=== PATIENT | female | born 1950 | race Caucasian/White ===

== ENCOUNTER → 2018-05-25 | Day surgery (SDC) | payer OTHER ==
--- NOTE | 2018-05-22 12:59 | History & Physical Pre-Op ---
General Information and HPI History of Present Illness: Laurel is a 68-year-old female with a long-standing and worsening complaint of a painful soft tissue mass and bone spur right foot. The patient has undergone an extended course of conservative care, including shoe gear and activity modification, rest, immobilization and courses of NSAIDs. None of this is yielded her any significant relief. The patient presents today for preoperative surgical consultation. The patient was referred to our office from Saúl Smith DPM. Allergies/Medications Allergies: Coded Allergies: MDX - Penicillin (PENICILLIN) (unknown 12/05/13) MDX - Sulfamethoxazole (From SEPTRA) (hives 12/05/13) MDX - Trimethoprim (From ) (hives 12/05/13) Past History Surgical History Pertinent Surgical History: non-contributory Review of Systems Review of Systems: Unremarkable except for that noted discussion of Exam & Diagnostic Data Physical Exam: Lungs clear bilaterally. Heart sounds rate and rhythm regular. Lower extremity physical exam demonstrates intact pedal pulses bilaterally. Both dorsalis pedis and posterior tibial arteries are palpable bilaterally. Patient without any sensory motor deficits. Deep tendon reflexes grossly intact. Patient noted to have cemented pain with palpation or range of motion through the right first metatarsophalangeal joint and with palpation plantarly at the met head. Patient also noted to have a enlarging and painful soft tissue mass right foot. Assessment/Plan Assessment/Plan: Painful and enlarging soft tissue mass with bone spur right foot. A lengthy discussion reviewing both surgical and conservative options was held the patient at bedside and the patient elected to go forward with surgery despite the risks. As Ranked By This Provider Problem List: 1. Neoplasm of unspecified behavior of bone, soft tissue, and skin Attending MD Review Statement Attending Statement Attending MD Statement: examined this patient
--- NOTE | 2018-05-25 13:03 | Operative Report ---
Operative/Inv Procedure Report Surgery Date: 05/25/18 Name of Procedure: 1 Excision of soft tissue mass right foot 2 Closure of open surgical wound with local random advancement flap 3 Excision of tibial sesamoid righ foot 4 Intra-operative administration of ankle block anesthesia Pre-Operative Diagnosis: 1 Painful, enlarging soft tissue mass right foot 2 Painful sesamoiditis right foot Post-Operative Diagnosis: The same Estimated Blood Loss: scant Surgeon/Supervising Fire Marshal: Rosalie RUTHERFORD,Carl Smith DPM Anesthesia: moderate sedation, block Operative/Procedure Note Note: After obtaining informed consent the patient was brought to the operating room and placed on the operating table in the supine position. The patient isn't securely fastened to the operating table utilizing safety belt. After administration of IV sedation, 10 mL of 0.5% Marcaine plain was infiltrated about the patient's right ankle. A well-padded ankle tourniquet was placed about the patient's right lower extremity. The right foot and ankle were scrubbed, prepped and draped in usual aseptic manner. Right lower extremity was elevated to examine to limb, which point the ankle tourniquet inflated 250 mmHg. Attention was directed the distal medial right foot, where a 3 cm linear incision was made at the junction the dorsal plantar skin. Dissection was then carried down to subtenons tissues were all vital neurovascular structures were identified protected. A linear capsulotomy was performed exposing the tibial sesamoid, which was shelled out and passed from the operative field. The wound was irrigated with cuff Svensson normal sterile saline. The capture structures reapproximated with 3-0 Vicryl subtenons tissues reports a 4-0 Vicryl. The skin edges reprepped for nylon. Attention was then directed to the dorsal first interspace, where a 4 cm linear incision was carried down subtenons tissues. A pale yellowish fatty lesion was identified and it was freed from its adjacent soft tissue attachments. It was passed from the operative field and sent a specimen for pathologic inspection. Nipple was irrigated cuff Svensson normal sterile saline. A dorsal medial dorsal lateral flap was then developed with undermining, mobilization and advancement adjacent tissue centrally. The deep side of the flap was held with 4-0 Vicryl and the skin edges reprepped for nylon. The incisions were dressed Xeroform, 4 x 4's, Kerlix and Hayder wrap. The patient was noted to tolerate both procedure and anesthesia well and the patient was transported from the operative room to recovery by sent stable best assess intact to both the dorsal medial dorsal lateral flaps.
== END ==
LOC: STS 01:27
DX: D49.2 Neoplasm of unspecified behavior of bone, soft tissue, and skin (principal); M25.871 Other specified joint disorders, right ankle and foot; E78.00 Pure hypercholesterolemia, unspecified
CPT/HCPCS: J1885; J2250